=== PATIENT | female | born 1950 | race Hispanic/Latino ===

== ENCOUNTER 2017-02-18 10:12 | Emergency (ER) | payer OTHER, MEDICARE ==
[2017-02-18 10:13] VITALS: BMI 72.2
[2017-02-18 10:40] VITALS: TEMP 98.1
[2017-02-18] MEDS ORDERED: Oxycodone/Acetaminophen 5/325 mg Tab PO STA (10:47)
--- NOTE | 2017-02-18 13:18 | RAD ---
PROCEDURE: Radiographs of the left humerus. HISTORY: fall COMPARISON: None. FINDINGS: BONES: There is a comminuted impacted fracture of the left humeral neck. SOFT TISSUES: Normal. OTHER FINDINGS: None. IMPRESSION: There is a comminuted impacted fracture of the left humeral neck.
--- NOTE | 2017-02-18 13:21 | RAD ---
PROCEDURE: Radiographs of the Left Shoulder HISTORY: fall COMPARISON: No prior. FINDINGS: BONES: There is a comminuted displaced impacted fracture of the left humeral neck. JOINTS: Normal. Glenohumeral and acromioclavicular joints preserved. No osteoarthritis. SOFT TISSUES: Normal. OTHER FINDINGS: None. IMPRESSION: There is a comminuted displaced impacted fracture of the left humeral neck.
--- NOTE | 2017-02-18 15:39 | ED PDOC ---
Arrival/HPI - General Chief Complaint: Upper Extremity Problem/Injury Time Seen by Provider: 02/18/17 10:46 Historian: Patient - History of Present Illness Narrative History of Present Illness (Text): 02/18/17 15:30 Patient c/o left shoulder pain after she fell while walking the dog. Patient c/ opain in the left shoulder and inability to move her arm secondary to the pain. Patient denies any other injuries. Past Medical History - Provider Review Nursing Documentation Reviewed: Yes - Past History Past History: Non-Contributing - Infectious Disease Hx of Infectious Diseases: None - Tetanus Immunization Tetanus Immunization: Unknown - Psychiatric Hx Depression: No Hx Emotional Abuse: No Hx Physical Abuse: No Hx Substance Use: No - Surgical History Hx Dilation and Curettage: Yes - Suicidal Assessment Feels Threatened In Home Enviroment: No Family/Social History Family/Social History: No Known Family HX Smoking Status: Never Smoked Hx Alcohol Use: Yes Frequency of alcohol use: Socially Hx Substance Use: No Hx Substance Use Treatment: No Allergies/Home Meds Allergies/Adverse Reactions: Allergies Sulfa (Sulfonamide Antibiotics) Allergy (Verified 02/18/17 10:40) ANAPHYLAXIS Review of Systems - Patients Enrolled in [employer] [X]: A conversation was conducted with the primary medical doctor. - Review of Systems Musculoskeletal: Other (shoulder pain) Physical Exam Vital Signs Reviewed: Yes Vital Signs Temp Pulse Resp BP Pulse Ox 02/18/17 16:18 84 18 178/93 H 98 02/18/17 12:35 72 16 197/99 H 97 02/18/17 10:36 98.1 F 70 16 198/98 H 98 Temperature: Afebrile Blood Pressure: Hypertensive Pulse: Regular Respiratory Rate: Normal Appearance: Positive for: Well-Appearing, Non-Toxic, Uncomfortable Pain Distress: Mild Mental Status: Positive for: Alert and Oriented X 3 - Systems Exam Head: Present: Atraumatic, Normocephalic Neck: Present: Normal Range of Motion Respiratory/Chest: Present: Clear to Auscultation, Good Air Exchange. No: Accessory Muscle Use Cardiovascular: Present: Regular Rate and Rhythm, Normal S1, S2 Abdomen: Present: Normal Bowel Sounds. No: Tenderness, Distention Back: Present: Normal Inspection. No: Midline Tenderness, Paraspinal Tenderness Upper Extremity: Present: Tenderness (left shoulder and proximal upper arm), Neurovascularly Intact, Capillary Refill < 2s. No: Normal ROM (Can't move left shoulder due to pain), Swelling, Temperature Abnormalties, Deformity Lower Extremity: Present: Normal Inspection, Normal ROM Neurological: Present: Motor Func Grossly Intact, Normal Sensory Function Medical Decision Making ED Course and Treatment: 02/18/17 16:52 Patient refused Percocet, but agreed to take Tylenol. Case was d/w Ortho who requested CT of shoulder. After the final report of CT, case was d/w again. He instructed to put shoulder immobilizer and d/c patient home with f/u in his office within 1-2 days. patient was given CD with her Xrays and CT. - RAD Interpretation Narrative RAD Interpretations (Text): 02/18/17 16:51 Comminuted impacted fracture of the left humeral neck Radiology Orders: 02/18/17 10:46 HUMERUS LEFT [RAD] Stat SHOULDER LEFT ONE VIEW (OR) [RAD] Stat 02/18/17 14:49 EXT UPPER W/O CONTRAST LEFT [CT] Stat - Medication Orders Current Medication Orders: Discontinued Medications Acetaminophen (Tylenol 325mg Tab) 650 mg PO STAT STA Stop: 02/18/17 12:13 Last Admin: 02/18/17 12:33 Dose: 650 mg Oxycodone/Acetaminophen (Percocet 5/325 Mg Tab) 1 tab PO STAT STA Stop: 02/18/17 10:48 Last Admin: 02/18/17 10:59 Dose: Not Given Non-Admin Reason: Patient Refused Disposition/Present on Arrival - Present on Arrival Any Indicators Present on Arrival: No History of DVT/PE: No History of Uncontrolled Diabetes: No Urinary Catheter: No History of Decub. Ulcer: No History Surgical Site Infection Following: None - Disposition Have Diagnosis and Disposition been Completed?: Yes Diagnosis: Shoulder fracture, left Disposition: HOME/ ROUTINE Disposition Time: 16:04 Patient Plan: Discharge Patient Problems: Current Active Problems Problem Status Onset Shoulder fracture, left Acute Condition: STABLE Discharge Instructions (ExitCare): Scapular Fracture (ED) Additional Instructions: Follow up with Orthopedist within 2-3 days. Return to ED if feel worse. Prescriptions: oxyCODONE/Acetaminophen [Percocet 5/325 mg Tab] 1 tab PO QID PRN #20 tab PRN Reason: Pain Referrals: Kvng Gotti MD [Staff Provider] - Follow up with primary [facility] Landy [Outside] - Follow up with primary Forms: [facility] (Nepali)
--- NOTE | 2017-02-18 15:43 | CT ---
PROCEDURE: CT of the left shoulder without contrast HISTORY: shoulder and humerus, ED 15 COMPARISON: TECHNIQUE: CT of the left shoulder was performed in the axial plane with sagittal and coronal reconstructions. There is a comminuted displaced impacted fracture of the left humeral neck. The articular surface of the humeral head is intact. The bony glenoid is intact FINDINGS: There is a comminuted displaced impacted fracture of the left humeral neck. The articular surface of the humeral head is intact. The bony glenoid is intact IMPRESSION: Comminuted impacted fracture of the left humeral neck
[2017-02-18 16:18] VITALS: BP 178/93; PULSE 84; RESP 18; O2SAT 98
== END 2017-02-18 16:36 | disposition home or self-care (01) ==
LOC: ED 10:12
DX: S42.202A Unspecified fracture of upper end of left humerus, initial encounter for closed fracture (principal); W18.30XA Fall on same level, unspecified, initial encounter; Y93.K1 Activity, walking an animal
CPT/HCPCS: 29240; 73020; 73060; 73200; 99284; L3650